=== PATIENT | male | born 1945 | race Caucasian/White ===

== ENCOUNTER → 2018-01-29 09:48 | Outpatient (CLI) | payer MEDICARE, BC | END | disposition home or self-care (01) | LOC: D.HCCARDIO 09:48 | DX: I20.9 Angina pectoris, unspecified (principal) ==

== ENCOUNTER 2018-02-18 11:58 | Outpatient (CLI) | payer MEDICARE, BC ==
[~2018-02-18] VITALS: Ht 193 cm; Wt 106.8 kg
--- NOTE | ~2018-02-18 | HEMODYNAMI ---
PATIENT:LEIGH NIELSEN MEDICAL RECORD: [id number] : 49 LOCATION:[facility] ADMISSION DATE: 02/18/18 Generatedon:02/18/201815:49 Patient name: LEIGH NIELSEN Patient #: [id number] SSN: : 1945 Date of study: 02/18/2018 Page: Of Hemodynamic Procedure Report Patient Data Patient Demographics Procedure consent was obtained First Name: LEIGH Gender: Male Last Name: MORALES : 1945 Patient #: [id number] Age: 72 year(s) Race: Unknown Additional ID: [id number] Contact details Address: [address] [place] [address] State: [place] City: [place] Zip code: [address] Past Medical History Allergies Allergen Reaction Date Comments Reported Penicillins 02/18/2018 Admission Admission Data Admission Date: 02/18/2018 Admission Time: 11:58 Height (in.): 75.98 Height (cm.): 193 Lab Results Lab Result Date: 02/18/2018 Lab Result Time: 0:00 Biochemistry Name Units Result Min Max BUN mg/dl 14 --(--*-)-- 7 18 Creatinine mg/dl 0.9 --(-*--)-- 0.6 1.3 CBC Name Units Result Min Max Hemoglobin g/dl 15.4 --(-*--)-- 13.5 17.5 Procedure Procedure Types Cath Procedure Diagnostic Procedure LHC LH w/Coronaries Sedation Charges Moderate Sedation up to 15 minutes PCI Procedure Coronary Stent Coronary Stent Initial Procedure Description Procedure Date Procedure Date: 02/18/2018 Procedure Start Time: 15:25 Procedure End Time: 15:44 Procedure Staff Name Function Bill Au MD Performing Physician Rhonda Gaspar RT Monitor Alton Ferris RT Scrub Coy Pisano RN Nurse Procedure Data Cath Procedure Fluoroscopy Diagnostic fluoroscopy Total fluoroscopy Time: 4.2 time: 4.2 min min Diagnostic fluoroscopy Total fluoroscopy dose: 455 dose: 455 mGy mGy Contrast Material Contrast Material Type Amount (ml) Isovue 300 121 Entry Location Entry Primary Successful Side Size Upsize Upsize Entry Closure Duran ccessful Closure Location (Fr) 1 (Fr) 2 (Fr) Remarks Device Remarks Radial Right 6 Fr Mechanical artery Short Compression Estimated blood loss: 10 ml Diagnostic catheters Device Type Used For End Catheter Placement DIAGNOSTIC [place] 110cm 5 Procedure Fr catheter ([id number]) Procedure Complications No complications Procedure Medications Medication Administration Route Dosage Oxygen etCO2 Nasal cannula 2 l/min Heparin Flush Bag added to field 2 bags (1000units/500ml NS) 0.9% NaCl I.V. 100 ml/hr Lidocaine 2% added to field 20 Radial Cocktail added to field 1 syringe (Verapomil 2mg/Nitro 400mcg/Heparin 1500units) Fentanyl I.V. 50 mcg Versed I.V. 1 mg Fentanyl I.V. 50 mcg Versed I.V. 1 mg Radial Cocktail I.A. 1 syringe (Verapomil 2mg/Nitro 400mcg/Heparin 1500units) Fentanyl I.V. 100 mcg Fentanyl I.V. 50 mcg Fentanyl I.V. 50 mcg Hemodynamics Rest HGB: 15.4 (g/dl) Heart Rate: 55 (bpm) Pressure Samples Time Site Value (mmHg) Purpose Heart Use Rate(bpm) 15:28 LV 107/1,10 Snapshot 61 Gradients Valve Time Site Site Mean SEP/DFP Peak To Heart Use 1 2 (mmHg) (sec/min) Peak Rate (mmHg) (bpm) Aortic 15:29 LV AO 61 Snapshots Pre Cath Intra NCS Post Cath Vital Signs Time Heart Resp SPO2 etCO2 NIBP (mmHg) Rhythm Pain Sedation Rate (ipm) (%) (mmHg) Status Level (bpm) 15:17:07 57 16 98 0 142/79(121) NSR 0 (11) 10(A) , No pain 15:21:27 54 16 93 20.2 139/73(112) NSR 0 (11) 10(A) , No pain 15:25:41 56 16 94 23.9 133/74(106) NSR 0 (11) 10(A) , No pain 15:29:47 62 16 94 11.9 110/89(97) NSR 0 (11) 9(A) , No pain 15:34:54 62 17 93 32.9 153/92(134) NSR 0 (11) 9(A) , No pain 15:39:12 66 17 95 0 140/82(119) NSR 0 (11) 9(A) , No pain 15:43:28 65 16 95 0 153/96(103) NSR 0 (11) 9(A) , No pain 15:46:23 67 16 93 0 136/78(130) NSR 0 (11) 9(A) , No pain Medications Time Medication Route Dose Verified Delivered Reason Notes Effectiveness by by 15:22:25 Oxygen etCO2 2 l/min Bill Coy Per Nasal Roe Pisano RN physician cannula 15:22:38 Heparin Flush added 2 bags Bill Coy used for Bag to Roe Pisano tank house supervisor (1000units/500ml field NS) 15:22:50 0.9% NaCl I.V. 100 Bill Coy Per ml/hr Roe Pisano RN physician 15:22:59 Lidocaine 2% added 20ml Bill Coy used for to vial Roe Pisano tank house supervisor field 15:23:07 Radial Cocktail added 1 Bill Coy used for (Verapomil to syringe Roe Pisano tank house supervisor 2mg/Nitro field 400mcg/Heparin 1500units) 15:25:32 Fentanyl I.V. 50 mcg Bill Coy for sedation Roe Pisano RN 15:25:39 Versed I.V. 1 mg Bill Cyo for sedation Roe Pisano RN 15:26:51 Fentanyl I.V. 50 mcg Bill Coy for sedation Roe Pisano RN 15:26:55 Versed I.V. 1 mg Bill Coy for sedation Roe Pisano RN 15:27:12 Radial Cocktail I.A. 1 Bill Bill for (Verapomil syringe Roe Au MD vasodilation 2mg/Nitro 400mcg/Heparin 1500units) 15:30:42 Fentanyl I.V. 100 mcg Bill Bill for sedation Roe Au MD 15:36:26 Fentanyl I.V. 50 mcg Bill Bill for sedation Roe Au MD 15:37:42 Fentanyl I.V. 50 mcg Bill Bill for sedation Roe Au MD Procedure Log Time Note 14:52:30 Alotn Ferris RT(R) sent for patient. Start room use. 15:02:31 Diagnostic Cath status Elective 15:02:32 Time tracking: Regular hours (M-F 7:00 - 5:00) 15:02:38 Plan of Care:Hemodynamics will remain stable., Cardiac rhythm will remain stable., Comfort level will be maintained., Respiratory function will remain adequate., Patient/ family verbilizes understanding of procedure., Procedure tolerated without complication., Recovers from procedure without complications.. 15:02:40 Signed procedure consent form obtained from patient. 15:02:53 Patient allergic to Penicillins 15:06:42 Patient received from Pre/Post Procedure Room to CCL 3 Alert and oriented. Tansferred to table in Supine position. 15:06:43 Warm blankets applied, and maureen hugger turned on for patient comfort. 15:06:44 Correct patient and procedure confirmed by team. 15:06:44 ECG and BP/O2 sat monitors applied to patient. 15:16:03 Vital chart was started 15:19:38 Baseline sample Acquired. 15:19:41 Rhythm: sinus bradycardia 15:19:42 Full Disclosure recording started 15:20:12 H&P Date Dictated: 02/17/2018 Within 30 days and on chart., H&P Addendum completed by physician on day of procedure. (MUST COMPLETE FOR ALL OUTPATIENTS). 15:20:12 Pre-procedure instructions explained to patient. 15:20:13 Pre-op teaching completed and patient verbalized understanding. 15:20:14 Family in patients room. 15:20:16 Patient NPO since Midnight. 15:20:19 Is patient on blood thinner?No 15:20:20 Patient diabetic? No. 15:20:22 Previous problem with sedation/anesthesia? No ? 15:20:23 Snore? Yes 15:20:24 Sleep apnea? No 15:20:25 Deviated septum? No 15:20:26 Opens mouth fully? Yes 15:20:26 Sticks out tongue? Yes 15:20:28 Airway obstruction? No ? 15:20:30 Dentures? No ? 15:20:32 Modified Ced's test Ulnar < 7 seconds 15:20:34 Patient pain scale 0/10 ?. 15:20:39 IV patent on arrival in left hand with 0.9% NaCl at [facility]. 15:21:02 Lab Result : Creatinine 0.9 mg/dl 15:21: Lab Result : BUN 14 mg/dl 15:21: Lab Result : Hemoglobin 15.4 g/dl 15:21:04 Lab results completed and on chart. 15:21:06 Right Radial & Right Groin area was prepped with chlora-prep and draped in sterile fashion 15:21: Alarms reviewed by R. N. 15:: Sharps counted by scrub and verified by R.N. 15:: --------ALL STOP TIME OUT------ 15:: Final Timeout: patient, procedure, and site verified with staff and physician. All members of the team are in agreement. 15:21:11 Right Radial & Right Groin site verified by team. 15:21:13 Physical assessment completed. ASA score P 2 - A patient with mild systemic disease as per Bill Au MD. 15:21:19 Sedation plan: IV Moderate Sedation Medication:Versed, Fentanyl 15:21:28 Use device set Radial Dx or PCI 15:21:29 ACIST Syringe (74524) opened to sterile field. 15:21:30 Bag Decanter (2002S) opened to sterile field. 15:21:31 ACIST Hand Control (02646) opened to sterile field. 15:21:31 ACIST Manifold (12240) opened to sterile field. 15:21:32 Tegaderm 4 x 4 (1626W) opened to sterile field. 15:21:33 Medline Cath Pack ([id number]) opened to sterile field. 15:21:33 DIAGNOSTIC WIRE .035 260cm J wire (709170) opened to sterile field. 15:21:34 MBrace Wrist Support ([id number]) opened to sterile field. 15:21:35 NEEDLE Cook 21G 4cm Radial (X54720) opened to sterile field. 15:21:36 SHEATH 6FR Slender (06-0485) opened to sterile field. 15:22:25 Oxygen 2 l/min etCO2 Nasal cannula was administered by Coy Pisano RN; Per physician; 15:22:38 Heparin Flush Bag (1000units/500ml NS) 2 bags added to field was administered by Coy Pisano RN; used for procedure; 15:22:50 0.9% NaCl 100 ml/hr I.V. was administered by Coy Pisano RN; Per physician; 15::59 Lidocaine 2% 20ml vial added to field was administered by Coy Pisano RN; used for procedure; 15:23:07 Radial Cocktail (Verapomil 2mg/Nitro 400mcg/Heparin 1500units) 1 syringe added to field was administered by Coy Pisano RN; used for procedure; 15:24:18 Procedure started. 15:25:21 Local anesthetic to right radial artery with Lidocaine 2% by Bill Au MD.INITIAL ACCESS ONLY 15::32 Fentanyl 50 mcg I.V. was administered by Coy Pisano RN; for sedation; 15::39 Versed 1 mg I.V. was administered by Coy Pisano RN; for sedation; 15::51 A 6 Fr Short sheath was inserted into the Right Radial artery 15::07 Zero performed for pressure channel P1 15:26:13 Zero performed for pressure channel P1 15::17 Zero performed for pressure channel P1 15::51 Fentanyl 50 mcg I.V. was administered by Coy Pisano RN; for sedation; 15::55 Versed 1 mg I.V. was administered by Coy Pisano RN; for sedation; 15::59 A DIAGNOSTIC [place] 110cm 5 Fr catheter (070263) was advanced over the wire and used for Procedure. 15:27:12 Radial Cocktail (Verapomil 2mg/Nitro 400mcg/Heparin 1500units) 1 syringe I.A. was administered by Bill Au MD; for vasodilation; 15::28 LV gram done using PADILLA 15::31 Injector settings: Ml/sec: 7, Volume: 15, 15:28:48 LV hemodynamics recorded. 15:29:01 EF : 60 % 15:30:42 Fentanyl 100 mcg I.V. was administered by Bill Au MD; for sedation; 15:31:15 LCA angiography performed. 15:32:16 RCA angiography performed. 15:32:19 Catheter removed. 15:33:15 GUIDE 6FR XBLAD 3.5 catheter ([id number]) opened to sterile field. 15:33:15 BMW 300cm Straight [place] 2 wire (1272025) opened to sterile field. 15:33:15 INFLATOR Merit BasixCompak (FR8138) opened to sterile field. 15:33:16 TUBING High Pressure Extension Tubing (Roe) ([id number]) opened to sterile field. 15:34:28 6 Fr XBLAD 3.5 guide catheter was inserted over the wire 15:36:26 Fentanyl 50 mcg I.V. was administered by Bill Au MD; for sedation; 15:36:41 BMW 300 wire advanced. 15:36:57 Wire advanced across lesion. 15:37:42 Fentanyl 50 mcg I.V. was administered by Bill Au MD; for sedation; 15:38:23 Patient Height : 75.98 inches 15:39:12 Place stent Inflation Number: 1 A INTEGRITY OTW 3.5 X 12 stent ([id number]) was prepped and advanced across the Prox CX. The stent was deployed at 16 CARLOS EDUARDO for 0:00 (min:sec). 15:40:04 Stent catheter was removed intact over wire. 15:40:05 Wire removed. 15:40:06 Guide catheter removed. 15:40:26 Procedure ended.(Physican Out) 15:40:43 Sheath removed intact; hemostasis achieved with Mechanical Compression to the Right Radial artery. 15:40:49 Fluoroscopy time 04.20 minutes. 15:40:56 Fluoroscopy dose: 455 mGy 15:40:56 Flurop Dose total: 455 15:40:59 Contrast amount:Isovue 300 121ml. 15:41:48 TR band inflated with 10cc of air. 15:41:58 Post-procedure physical assessment completed. ASA score P 2 - A patient with mild systemic disease as per Bill Au MD. 15:42:01 Post procedure rhythm: unchanged. 15:42:03 Estimated blood loss: 10 ml 15:43:24 Post procedure instruction explained to patient.Patient verbalizes understanding. 15:43:25 Patient needs reinforcement of post procedure teaching. 15:43:49 Procedure type changed to Cath procedure, Diagnostic procedure, LHC, LHC w/Coronaries, Sedation Charges, Moderate Sedation up to 15 minutes, PCI procedure, Coronary Stent, Coronary Stent Initial 15:44:29 Procedure and supply charges have been captured, reviewed, submitted and are correct. 15:44:32 Procedure Complication : No complications :44:34 Vital chart was stopped :44:34 See physician's report for complete and final results. 15:44:36 Report given to Pre/Post Procedure Room. 15:44:38 Patient transfered to Pre/Post Procedure Room with Bed. 15:44:40 Procedure ended. 15:44:40 Full Disclosure recording stopped 15:44:43 End room use (Document Last) 15:45:13 Vital chart was started 15:49:50 Vital chart was stopped Intervention Summary Intervention Notes Time ActionType Lesion and Equipment Action# Pressure Duration Attributes Used 15:39:12 Place stent Prox CX INTEGRITY 1 16 00:00 OTW 3.5 X 12 stent ([id number]) Device Usage Item Name Manufacture Quantity Catalog Hospital Part Current Minimal Lot# / Number Charge Number Stock Stock Serial# Code ACIST Acist 1 58692 755987 207633 624444 20 Syringe Medical (27816) Systems Inc Bag Microtek 1 2001S 908433 22612 295806 5 Decanter Medical Inc. () ACIST Hand Acist 1 84416 297943 631791 322512 5 Control Medical (69716) Systems Inc ACIST Acist 1 95782 226097 945413 341040 5 Manifold Medical (56340) Systems Inc Tegaderm 4 3M 1 1626W 480631 930197 630684 5 x 4 (1626W) Medline Medline 1 [id number] 759504 08387 017285 5 Cath Pack ([id number]) DIAGNOSTIC St Fredo 1 852676 367088 128639 842584 30 WIRE .035 260cm J wire (746324) MBrace Advanced 1 140-0250-00 677218 09263 239885 5 Wrist Vascular Support Dynamics ([id number]) NEEDLE Cook Cook Medical 1 J31734 065104 969308 909955 5 21G 4cm Radial (S24201) SHEATH 6FR Terumo 1 [id number] 199304 661207 353924 5 Slender (80-1060) DIAGNOSTIC Terumo 1 40-8807 922225 496473 180556 5 [place] 110cm 5 Fr catheter (750730) GUIDE 6FR Cardinal 1 [id number] 388044 491975 866453 10 XBLAD 3.5 Health catheter (35852001) BMW 300cm [place] 1 2704912 592519 467712 445438 5 Straight Vascular [place] 2 wire (5201124) INFLATOR Merit 1 OK1977 784967 465056 248028 15 Merit Medical BasixCompak (QH5462) TUBING High Merit 1 [id number] 199951 72307 145926 10 Pressure Medical Extension Tubing (Au) ([id number]) INTEGRITY Medtronic 1 [id number] 479111 586391 7 [id number] OTW 3.5 X 12 stent ([id number]) Signature Audit [place] Stage Time Signature Unsigned Intra-Procedure 02/18/2018 Rhonda Gaspar 3:49:47 PM RT(R) Signatures Monitor : Rhonda Gaspar Signature : RT Date : Time : [address] [place] [address]
[2018-02-18] MEDS ORDERED: BETAPACE 80 MG80 MG PO (12:19)
[2018-02-18] MEDS ORDERED: ZOCOR40 MG PO (12:20)
[2018-02-18] MEDS ORDERED: ALTACE10 MG PO (12:20)
[2018-02-18] MEDS ORDERED: GLUCOPHAGE1000 MG PO (12:20)
[2018-02-18 12:30] VITALS: BP 165/105; Ht 193 cm; Wt 106.8 kg
[2018-02-18 12:43] LABS: BASOPHILS 0.2 % (0-2); EOSINOPHILS 3.6 % (0-7); HEMATOCRIT 44.3 % (42.0-54.0); HEMOGLOBIN 15.4 g/dL (13.5-17.5); IMMATURE GRANULOCYTES 0.5 % (0-5); LYMPHOCYTES 27.3 % (15-50); MCH 32.7 pg (26.0-34.0); MCHC 34.8 g/dL (31.0-37.0); MCV 94.1 fL (80.0-100.0); MEAN PLATELET VOLUME 11.1 fL (7.4-10.4); MONOCYTES 9.1 % (2-11); NEUTROPHILS 59.3 % (40-80); PLATELET COUNT 212 10x3/uL (130-400); RBC 4.71 10x6/uL (4.20-6.10); RDW 12.1 % (11.5-14.5); WBC 9.7 10x3/uL (4.8-10.8)
[2018-02-18 12:45] LABS: CALC OSMOLALITY 288 mosm/kg (275-300); CALCIUM 9.1 mg/dL (8.5-10.1); CHLORIDE - SERUM 107 mmol/L (98-107); CREATININE - SERUM 0.9 mg/dL (0.6-1.3); GLUCOSE 182 mg/dL (74-106); POTASSIUM - SERUM 4.1 mmol/L (3.5-5.1); SODIUM 142 mmol/L (136-145); UREA NITROGEN 14 mg/dL (7-18); eGFR NON AFRICAN AMERICAN 89 mL/min (90-120)
[2018-02-18] MEDS ORDERED: PLAVIX75 MG PO (16:04)
[2018-02-18] MEDS ORDERED: BAYER CHEWABLE81 MG PO (16:04)
== END 2018-02-18 19:45 ==
LOC: D.CATH 11:58
PROVIDERS: Internal Medicine Cardiovascular Disease
DX: I25.119 Atherosclerotic heart disease of native coronary artery with unspecified angina pectoris (principal); R94.30 Abnormal result of cardiovascular function study, unspecified; E11.9 Type 2 diabetes mellitus without complications; E78.5 Hyperlipidemia, unspecified; I10 Essential (primary) hypertension; I48.0 Paroxysmal atrial fibrillation

== ENCOUNTER 2018-03-03 11:01 | Outpatient (CLI) | payer MEDICARE, BC ==
[~2018-03-03] VITALS: Ht 193 cm; Wt 106.8 kg
--- NOTE | ~2018-03-03 | HEMODYNAMI ---
PATIENT:LEIGH NIELSEN MEDICAL RECORD: [id number] : 49 LOCATION:[facility] ADMISSION DATE: 03/03/18 Generatedon:03/03/201814:02 Patient name: LEIGH NIELSEN Patient #: [id number] SSN: : 1945 Date of study: 03/03/2018 Page: Of Hemodynamic Procedure Report Patient Data Patient Demographics Procedure consent was obtained First Name: LEIGH Gender: Male Last Name: MORALES : 1945 Patient #: [id number] Age: 72 year(s) Race: Additional ID: [id number] Contact details Address: [address] [place] [address] State: [place] City: [place] Zip code: [address] Past Medical History Allergies Allergen Reaction Date Comments Reported Penicillins 02/18/2018 Penicillins 03/03/2018 Admission Admission Data Admission Date: 03/03/2018 Admission Time: 11:01 Procedure Procedure Types Cath Procedure Diagnostic Procedure PCI Procedure Coronary Stent Coronary Stent Initial Procedure Description Procedure Date Procedure Date: 03/03/2018 Procedure Start Time: 13:47 Procedure End Time: 14:02 Procedure Staff Name Function Bill Au MD Performing Physician Johnny Barakat RT Scrub Babs Lechuga RT Monitor Aliza Ramos RN Nurse Procedure Data Cath Procedure Fluoroscopy Diagnostic fluoroscopy Total fluoroscopy Time: 3.3 time: 3.3 min min Diagnostic fluoroscopy Total fluoroscopy dose: 178 dose: 178 mGy mGy Contrast Material Contrast Material Type Amount (ml) Isovue 300 58 Entry Location Entry Primary Successful Side Size Upsize Upsize Entry Closure Duran ccessful Closure Location (Fr) 1 (Fr) 2 (Fr) Remarks Device Remarks Radial Right 6 Fr Mechanical artery Short Compression Estimated blood loss: 5 ml Procedure Complications No complications Procedure Medications Medication Administration Route Dosage 0.9% NaCl I.V. 100 ml/hr Oxygen etCO2 Nasal cannula 2 l/min Lidocaine 2% added to field 20 Heparin Flush Bag added to field 2 bags (1000units/500ml NS) Radial Cocktail added to field 1 syringe (Verapomil 2mg/Nitro 400mcg/Heparin 1500units) Versed I.V. 2 mg Fentanyl I.V. 50 mcg Versed I.V. 2 mg Fentanyl I.V. 50 mcg Heparin Bolus I.V. 90531 units Hemodynamics Rest Heart Rate: 61 (bpm) Snapshots Pre Cath Intra NCS Post Cath Vital Signs Time Heart Resp SPO2 etCO2 NIBP (mmHg) Rhythm Pain Sedation Rate (ipm) (%) (mmHg) Status Level (bpm) 13:31:22 61 17 97 22.6 128/75(100) NSR 0 (11) 10(A) , No pain 13:35:44 61 18 98 33.2 120/72(99) NSR 0 (11) 10(A) , No pain 13:40:02 61 13 96 15.1 121/72(95) NSR 0 (11) 10(A) , No pain 13:44:20 61 10 98 12.8 114/72(90) NSR 0 (11) 10(A) , No pain 13:48:38 61 14 96 25.6 112/72(95) NSR 0 (11) 10(A) , No pain 13:53:01 64 14 97 21.9 102/63(78) NSR 0 (11) 9(A) , No pain 13:57:16 65 13 97 23.6 110/64(87) NSR 0 (11) 10(A) , No pain 14:01:32 64 7 95 11.3 106/69(90) NSR 0 (11) 10(A) , No pain Medications Time Medication Route Dose Verified Delivered Reason Not es Effectiveness by by 13:30:17 0.9% NaCl I.V. 100 Bill Aliza used for ml/hr Roe Ramos internal wholesaler 13:30:25 Oxygen etCO2 2 l/min Bill Aliza used for Nasal Roe Ramos procedure cannula RN 13:30:30 Lidocaine 2% added 20ml Bill Bill for local to vial Roe Au MD anesthetic field 13:30:35 Heparin Flush added 2 bags Bill Bill used for Bag to Roe Au MD procedure (1000units/500ml field NS) 13:30:42 Radial Cocktail added 1 Bill Bill used for (Verapomil to syringe Roe Au MD procedure 2mg/Nitro field 400mcg/Heparin 1500units) 13:45:38 Versed I.V. 2 mg Bill Aliza for sedation Roe Ramos RN 13:45:43 Fentanyl I.V. 50 mcg Bill Aliza for sedation Roe Ramos RN 13:51:12 Versed I.V. 2 mg Bill Aliza for sedation Roe Ramos RN 13:51:18 Fentanyl I.V. 50 mcg Bill Aliza for sedation Roe Ramos RN 13:52:59 Hep[place].V. 45959 Bill Aliza for shiraz ified units Roe Ramos anticoagulation with Dr. NEGRO Au Procedure Log Time Note 13:15:03 Informed consent obtained and on chart 13:15:08 Diagnostic Cath Status : Elective 13:16:19 Johnny Barakat RT(R) (CV) sent for patient. Start room use. 13:16:29 Time tracking: Regular hours (M-F 7:00 - 5:00) 13:16:33 Plan of Care:Hemodynamics will remain stable., Cardiac rhythm will remain stable., Comfort level will be maintained., Respiratory function will remain adequate., Patient/ family verbilizes understanding of procedure., Procedure tolerated without complication., Recovers from procedure without complications.. 13:17:06 Use device set Radial Dx or PCI 13:18:36 Procedure type changed to Cath procedure, Diagnostic procedure, PCI procedure, Coronary Stent, Coronary Stent Initial 13:23:00 Patient received from Pre/Post Procedure Room to [facility] 1 Alert and oriented. Tansferred to table in Supine position. 13:23:01 Warm blankets applied, and maureen hugger turned on for patient comfort. 13:23:02 Correct patient and procedure confirmed by team. 13:23:02 ECG and BP/O2 sat monitors applied to patient. 13:23:03 Full Disclosure recording started 13:30:06 Vital chart was started 13:30:17 0.9% NaCl 100 ml/hr I.V. was administered by Aliza Ramos RN; used for procedure; 13:30:25 Oxygen 2 l/min etCO2 Nasal cannula was administered by Aliza Ramos RN; used for procedure; 13:30:30 Lidocaine 2% 20ml vial added to field was administered by Bill Au MD; for local anesthetic; 13:30:35 Heparin Flush Bag (1000units/500ml NS) 2 bags added to field was administered by Bill Au MD; used for procedure; 13:30:42 Radial Cocktail (Verapomil 2mg/Nitro 400mcg/Heparin 1500units) 1 syringe added to field was administered by Bill Au MD; used for procedure; 13:37:50 Rhythm: sinus rhythm 13:38:26 H&P Date Dictated: 02/18/2019 Within 30 days and on chart., H&P Addendum completed by physician on day of procedure. (MUST COMPLETE FOR ALL OUTPATIENTS). 13:38:27 Pre-procedure instructions explained to patient. 13:38:27 Pre-op teaching completed and patient verbalized understanding. 13:38:30 Family in patients room. 13:38:31 Patient NPO since Midnight. 13:38:38 Patient allergic to Penicillins 13:38:43 Is the patient allergic to Iodine/contrast media? No. 13:38:44 Is patient on blood thinner?Yes 13:38:46 ACC The patient was administered the following blood thiners within the last 24 hours: ACCPlavix 13:38:49 Patient diabetic? No. 13:38:53 Previous problem with sedation/anesthesia? No ? 13:41:36 Snore? Yes 13:41:44 Sleep apnea? No 13:41:45 Deviated septum? No 13:41:47 Opens mouth fully? Yes 13:41:50 Sticks out tongue? Yes 13:41:53 Airway obstruction? No ? 13:41:55 Dentures? No ? 13:42:01 Pre procedure: right dorsailis pedis pulse 2+ Normal; easily identifiable; not easily obliterated 13:42:03 Modified Ced's test Ulnar < 7 seconds 13:42:05 Patient pain scale 0/10 ?. 13:42:17 IV patent on arrival in left forearm with 0.9% NaCl at [facility]. 13:42:20 Lab results completed and on chart. 13:42:30 Right Radial & Right Groin area was prepped with chlora-prep and draped in sterile fashion 13:42:30 Alarms reviewed by R. N. 13:42:31 Sharps counted by scrub and verified by R.N. 13:42:40 Use device set AU PCI 13:42:46 NEEDLE Cook 21G 4cm Radial ([id number]) opened to sterile field. 13:42:48 TUBING High Pressure Extension Tubing (Au) ([id number]) opened to sterile field. 13:42:50 INFLATOR Merit BasixCompak (MT0969) opened to sterile field. 13:42:51 SHEATH 6FR Slender (80-1060) opened to sterile field. 13:42:57 BMW 300cm Kila 2 J wire ([id number]) opened to sterile field. 13:43:00 ACIST Syringe (33493) opened to sterile field. 13:43:01 Medline Cath Pack ([id number]) opened to sterile field. 13:43:02 Bag Decanter (2002S) opened to sterile field. 13:43:03 DIAGNOSTIC WIRE .035 260cm J wire (483531) opened to sterile field. 13:43:04 ACIST Hand Control (67884) opened to sterile field. 13:43:04 ACIST Manifold (14910) opened to sterile field. 13:43:16 Zero performed for pressure channel P1 13:43:21 Zero performed for pressure channel P1 13:43:24 Zero performed for pressure channel P1 13:43:35 MBrace Wrist Support ([id number]) opened to sterile field. 13:45:17 Final Timeout: patient, procedure, and site verified with staff and physician. All members of the team are in agreement. 13:45:21 Right Radial site verified by team. 13:45:23 Physical assessment completed. ASA score P 2 - A patient with mild systemic disease as per Bill Au MD. 13:45:26 Sedation plan: IV Moderate Sedation Medication:Versed, Fentanyl 13:45:32 Baseline sample Acquired. 13:45:38 Versed 2 mg I.V. was administered by Aliza Ramos RN; for sedation; 13:45:43 Fentanyl 50 mcg I.V. was administered by Aliza Ramos RN; for sedation; 13:47:04 Procedure started. 13:47:09 Local anesthetic to right radial artery with Lidocaine 2% by Bill Au MD.INITIAL ACCESS ONLY 13:47:50 A 6 Fr Short sheath was inserted into the Right Radial artery 13:49:28 6 Fr XBLAD 3.5 guide catheter was inserted over the wire 13:51:12 Versed 2 mg I.V. was administered by Aliza Ramos RN; for sedation; 13:51:18 Fentanyl 50 mcg I.V. was administered by Aliza Ramos RN; for sedation; 13:51:30 BMW wire advanced. 13:52:59 Heparin Bolus 59783 units I.V. was administered by Aliza Ramos RN; for anticoagulation; verified with Dr. Au 13:56:19 Place stent Inflation Number: 1 A INTEGRITY OTW 3.0 X 15 stent ([id number]) was prepped and advanced across the Mid LAD. The stent was deployed at 14 CARL[address] ED[address]ARDO for 0:09 (min:sec). 13:57:56 Stent catheter was removed intact over wire. 13:58:33 Wire removed. 13:58:35 Guide catheter removed. 13:58:46 Sheath removed intact; hemostasis achieved with Mechanical Compression to the Right Radial artery. 13:58:48 Procedure ended.(Physican Out) 13:59:05 Fluoroscopy time 03.30 minutes. 13:59:20 Flurop Dose total: 178 13:59:20 Fluoroscopy dose: 178 mGy 13:59:24 Contrast amount:Isovue 300 58ml. 13:59:27 TR band inflated with 12cc of air. 13:59:31 Insertion/operative site no bleeding no hematoma. 13:59:37 Post right radial artery:stable, clean and dry 13:59:40 Post Procedure Pulses reassessed and unchanged 13:59:52 Post-procedure physical assessment completed. ASA score P 2 - A patient with mild systemic disease as per Bill Au MD. 13:59:55 Post procedure rhythm: unchanged. 13:59:59 Estimated blood loss: 5 ml 14:00:00 Post procedure instruction explained to patient.Patient verbalizes understanding. 14:00:01 Patient needs reinforcement of post procedure teaching. 14:00:06 Procedure Complication : No complications 14:00:08 See physician's report for complete and final results. 14:00:21 TR BAND Standard ([id number]) opened to sterile field. 14:01:17 Procedure and supply charges have been captured, reviewed, submitted and are correct. 14:02:02 Vital chart was stopped 14:02:04 Report given to Pre/Post Procedure Room. 14:02:06 Patient transfered to Pre/Post Procedure Room with Stretcher. 14:02:24 Procedure ended. 14:02:24 Full Disclosure recording stopped 14:02:28 End room use (Document Last) Intervention Summary Intervention Notes Time ActionType Lesion and Equipment Action# Pressure Duration Attributes Used 13:56:19 Place stent Mid LAD INTEGRITY 1 14 00:09 OTW 3.0 X 15 stent ([id number]) Device Usage Item Name Manufacture Quantity Catalog Hospital Part Current Minimal Lot# / Number Charge Number Stock Stock Serial# Code NEEDLE [facility] [facility] [employer] 1 [id number] [id number] 518257 5 21G 4cm Radial (N17808) TUBING High Merit 1 [id number] 989459 45899 626736 10 Pressure Medical Extension Tubing (Au) (MY1236N) INFLATOR Merit 1 HJ9924 320217 859176 829899 15 Voter Gravity Medical BasixCompak (NY0879) SHEATH 6FR Terumo 1 [id number] 143378 404972 084396 5 Slender (80-1060) BMW 300cm [place] 1 [id number] 437732 455093 800238 5 Kila 2 Vascular J wire ([id number]) ACIST Acist 1 39557 982104 528822 110123 20 Syringe Medical (81947) Systems Inc Medline Medline 1 [id number] 876279 93933 315999 5 Cath Pack ([id number]) Bag Microtek 1 2001S 701694 97055 635272 5 Decanter Medical Inc. (2001S) DIAGNOSTIC St Fredo 1 590186 653328 154925 602934 30 WIRE .035 260cm J wire (538546) ACIST Hand Acist 1 62355 110858 571877 095121 5 Control Medical (62251) Systems Inc ACIST Acist 1 53792 909971 671605 454655 5 Manifold Medical (84707) Systems Inc MBrace Advanced 1 140-0250-00 821784 19760 289269 5 Wrist Vascular Support Dynamics ([id number]) INTEGRITY Medtronic 1 [id number] 032200 033954 5 [id number] OTW 3.0 X 15 stent ([id number]) TR BAND Terumo 1 [id number] 187159 217474 349249 40 Standard ([id number]) Signature Audit [place] Stage Time Signature Unsigned Intra-Procedure 03/03/2018 Babs 2:02:42 PM Counts RT(R) Signatures Monitor : Babs Signature : Counts RT Date : Time : [address] [place] [address]
[~2018-03-03 11:01] MED LIST: ALTACE10 MG PO; BAYER CHEWABLE81 MG PO; BETAPACE 80 MG80 MG PO; GLUCOPHAGE1000 MG PO; PLAVIX75 MG PO; ZOCOR40 MG PO
[2018-03-03] MEDS ORDERED: ALTACE10 MG PO (11:24)
[2018-03-03] MEDS ORDERED: POLY-VI-SOL W/I50 ML PO (11:25)
[2018-03-03] MEDS ORDERED: NIASPAN500 MG PO (11:26)
[2018-03-03] MEDS ORDERED: VITAMIN C WIT1000 MG (11:27)
[2018-03-03] MEDS ORDERED: VITAMIN D2000 UNIT PO (11:27)
[2018-03-03] MEDS ORDERED: SAW PALMETTO450 MG PO (11:28)
[2018-03-03] MEDS ORDERED: CO Q-10100 MG PO (11:28)
[2018-03-03] MEDS ORDERED: OSTEO BI-FLEX1 EAC1 PO (11:28)
[2018-03-03] MEDS ORDERED: BETAPACE 120 M120 MG PO (11:30)
[2018-03-03 11:37] VITALS: BP 145/77; Ht 193 cm; Wt 106.8 kg
[2018-03-03 11:44] LABS: BASOPHILS 0.5 % (0-2); EOSINOPHILS 3.2 % (0-7); HEMATOCRIT 44.4 % (42.0-54.0); HEMOGLOBIN 15.8 g/dL (13.5-17.5); IMMATURE GRANULOCYTES 0.6 % (0-5); LYMPHOCYTES 31.7 % (15-50); MCH 33.2 pg (26.0-34.0); MCHC 35.6 g/dL (31.0-37.0); MCV 93.3 fL (80.0-100.0); MEAN PLATELET VOLUME 10.5 fL (7.4-10.4); MONOCYTES 8.4 % (2-11); NEUTROPHILS 55.6 % (40-80); PLATELET COUNT 206 10x3/uL (130-400); RBC 4.76 10x6/uL (4.20-6.10); WBC 11.1 10x3/uL (4.8-10.8)
[2018-03-03 11:59] LABS: CALC OSMOLALITY 279 mosm/kg (275-300); CALCIUM 9.2 mg/dL (8.5-10.1); CARBON DIOXIDE 24.8 mmol/L (21.0-32.0); CHLORIDE - SERUM 103 mmol/L (98-107); CREATININE - SERUM 0.9 mg/dL (0.6-1.3); GLUCOSE 208 mg/dL (74-106); POTASSIUM - SERUM 4.2 mmol/L (3.5-5.1); SODIUM 136 mmol/L (136-145); UREA NITROGEN 17 mg/dL (7-18); eGFR NON AFRICAN AMERICAN 89 mL/min (90-120)
--- NOTE | 2018-03-03 14:25 | NUR ---
ROOM AIR, NO RESP DISTRESS. RIGHT WRIST TR BAND CDI, NO BLEEDING OR HEMATOMA NOTED. NO C/O PAIN OR NAUSEA. VSS. FAMILY AT BEDSIDE, CALL LIGHT WITHIN REACH.
--- NOTE | 2018-03-03 14:55 | NUR ---
RIGHT WRIST TR BAND CDI, NO BLEEDING OR HEMATOMA NOTED. ROOM AIR WITH NO RESP DISTRESS. VSS. WILL CONTINUE TO MONITOR.
--- NOTE | 2018-03-03 15:10 | NUR ---
SIPPING ON DRINK AND EATING SANDWICH WITH NO C/O NAUSEA. RIGHT WRIST TR BAND CDI, NO BLEEDING NOTED. VSS. WILL CONTINUE TO MONITOR.
--- NOTE | 2018-03-03 15:40 | NUR ---
RESTING QUIETLY WITH NO C/O. RIGHT WRIST TR BAND CDI, NO BLEEDING NOTED. DENIES ANY NEEDS AT THIS TIME. VSS. CALL LIGHT WITHIN REACH.
--- NOTE | 2018-03-03 17:00 | NUR ---
3CC OF AIR REMOVED FROM TR BAND WITH NO BLEEDING NOTED. VSS. WILL CONTINUE TO MONITOR.
--- NOTE | 2018-03-03 17:20 | NUR ---
3CC OF AIR REMOVED FROM TR BAND WITH NO BLEEDING NOTED.
--- NOTE | 2018-03-03 17:38 | NUR ---
2CC OF AIR REMOVED FROM TR BAND WITH NO BLEEDING NOTED.
--- NOTE | 2018-03-03 17:50 | NUR ---
LEFT PIV D/C'D WITH CATHETER INTACT, BAND AID TO SITE. UP TO BEDSIDE TO GET DRESSED. AMBULATED TO RESTROOM.
--- NOTE | 2018-03-03 17:55 | NUR ---
HEMATOMA NOTED TO RIGHT WRIST. PRESSURE HELD TO SITE AND 6CC OF AIR PLACED BACK INTO TR BAND.
--- NOTE | 2018-03-03 18:25 | NUR ---
3CC OF AIR REMOVED FROM TR BAND WITH NO BLEEDING NOTED.
--- NOTE | 2018-03-03 18:45 | NUR ---
REMAINING AIR REMOVED FROM TR BAND WITH NO BLEEDING NOTED. DRESSING PLACED TO SITE. DISCHARGE INSTRUCTIONS GIVEN, VERBALIZED UNDERSTANDING.
--- NOTE | 2018-03-03 18:55 | NUR ---
TAKEN OUT VIA WHEELCHAIR BY CATH INSTRUMENT ASSEMBLY SUPERVISOR. LEFT FACILITY WITH FAMILY AND ALL PERSONAL BELONGINGS.
== END 2018-03-03 18:55 | disposition home or self-care (01) ==
LOC: D.CATH 11:01
PROVIDERS: Internal Medicine Cardiovascular Disease
DX: I25.119 Atherosclerotic heart disease of native coronary artery with unspecified angina pectoris (principal)

== ENCOUNTER → 2018-08-14 10:09 | Outpatient (CLI) | payer MEDICARE, BC ==
[2018-03-03 11:37] VITALS: BMI 28.6
[~2018-08-14 10:09] MED LIST changes: +BETAPACE 120 M120 MG PO; +CO Q-10100 MG PO; +NIASPAN500 MG PO; +OSTEO BI-FLEX1 EAC1 PO; +POLY-VI-SOL W/I50 ML PO; +SAW PALMETTO450 MG PO; +VITAMIN C WIT1000 MG; +VITAMIN D2000 UNIT PO
== END | disposition home or self-care (01) ==
LOC: D.HCCARDIO 08-10 10:30
PROVIDERS: ATTEND Internal Medicine Cardiovascular Disease
DX: I25.10 Atherosclerotic heart disease of native coronary artery without angina pectoris (principal)

== ENCOUNTER → 2018-10-12 11:39 | Outpatient (CLI) | payer MEDICARE, BC ==
[2018-03-03 11:37] VITALS: BMI 28.6
== END | disposition home or self-care (01) ==
LOC: D.HCCARDIO 11:39
PROVIDERS: ATTEND Internal Medicine Cardiovascular Disease
DX: I25.10 Atherosclerotic heart disease of native coronary artery without angina pectoris (principal)

== ENCOUNTER 2018-10-19 11:18 | Outpatient (CLI) | payer MEDICARE, BC ==
[~2018-10-19] VITALS: Ht 193 cm; Wt 103.6 kg
--- NOTE | ~2018-10-19 | HEMODYNAMI ---
PATIENT:LEIGH NIELSEN MEDICAL RECORD: [id number] : 49 LOCATION:[facility] ADMISSION DATE: 10/19/18 Generatedon:10/19/201814:24 Patient name: LEIGH NIELSEN Patient #: [id number] SSN: : 1945 Date of study: 10/19/2018 Page: Of Hemodynamic Procedure Report Patient Data Patient Demographics Procedure consent was obtained First Name: LEIGH Gender: Male Last Name: MORALES : 1945 Patient #: [id number] Age: 72 year(s) Race: Additional ID: [id number] Contact details Address: [address] [place] [address] State: [place] City: [place] Zip code: [address] Past Medical History Allergies Allergen Reaction Date Comments Reported Penicillins 02/18/2018 Penicillins 03/03/2018 Other allergy 10/19/2018 N Admission Admission Data Admission Date: 10/19/2018 Admission Time: 11:18 Lab Results Lab Result Date: 10/19/2018 Lab Result Time: 0:00 Biochemistry Name Units Result Min Max BUN mg/dl 15 --(--*-)-- 7 18 Creatinine mg/dl 1 --(--*-)-- 0.6 1.3 eGFR ml/min 78 *-(----)-- 90 120 NONAFRICAN CBC Name Units Result Min Max Hemoglobin g/dl 14.7 --(-*--)-- 13.5 17.5 Procedure Procedure Types Cath Procedure Diagnostic Procedure C LH w/Coronaries Sedation Charges Moderate Sedation up to 15 minutes Procedure Description Procedure Date Procedure Date: 10/19/2018 Procedure Start Time: 14:02 Procedure Staff Name Function Bill Au MD Performing Physician Cesar Carvajal RN Nurse Johnny Barakat RT Scrub Seferino Lee RT Monitor Procedure Data Cath Procedure Fluoroscopy Diagnostic fluoroscopy Total fluoroscopy Time: 3.9 time: 3.9 min min Diagnostic fluoroscopy Total fluoroscopy dose: dose: 1029 mGy 1029 mGy Contrast Material Contrast Material Type Amount (ml) Isovue 300 93 Entry Location Entry Primary Successful Side Size Upsize Upsize Entry Closure Duran ccessful Closure Location (Fr) 1 (Fr) 2 (Fr) Remarks Device Remarks Radial Right 6 Fr Mechanical artery Short Compression Estimated blood loss: 5 ml Diagnostic catheters Device Type Used For End Catheter Placement DIAGNOSTIC [place] 110cm 5 Procedure Fr catheter ([id number]) DIAGNOSTIC AR MOD 5Fr Procedure Catheter ([id number]) DIAGNOSTIC AL1 5Fr Procedure catheter ([id number]) Procedure Medications Medication Administration Route Dosage 0.9% NaCl I.V. 100 ml/hr Oxygen etCO2 Nasal cannula 2 l/min Heparin Flush Bag added to field 2 bags (1000units/500ml NS) Lidocaine 2% added to field 20 Radial Cocktail added to field 1 syringe (Verapamil 2mg/Nitro 400mcg/Heparin 1500units) Versed I.V. 2 mg Fentanyl I.V. 100 mcg Radial Cocktail I.A. 1 syringe (Verapamil 2mg/Nitro 400mcg/Heparin 1500units) Versed I.V. 1 mg Hemodynamics Rest HGB: 14.7 (g/dl) Heart Rate: 55 (bpm) Pressure Samples Time Site Value (mmHg) Purpose Heart Use Rate(bpm) 14:06 LV 72/9,12 Snapshot 42 Gradients Valve Time Site Site Mean SEP/DFP Peak To Heart Use 1 2 (mmHg) (sec/min) Peak Rate (mmHg) (bpm) Aortic 14:06 LV AO 68 Snapshots Pre Cath Intra NCS Post Cath Vital Signs Time Heart Resp SPO2 etCO2 NIBP (mmHg) Rhythm Pain Sedation Rate (ipm) (%) (mmHg) Status Level (bpm) 13:49:33 52 19 96 36.5 149/81(96) NSR 0 (11) 10(A) , No pain 13:54:18 53 15 96 3.7 143/90(119) NSR 0 (11) 10(A) , No pain 13:58:34 54 14 92 0 144/84(109) NSR 0 (11) 10(A) , No pain 14:03:50 54 19 96 22.3 157/84(127) NSR 0 (11) 10(A) , No pain 14:08:06 67 17 93 0 118/75(92) NSR 0 (11) 9(A) , No pain 14:12:18 63 16 93 0 129/77(105) NSR 0 (11) 9(A) , No pain 14:16:36 54 19 93 0 138/71(115) NSR 0 (11) 10(A) , No pain 14:20:54 52 9 96 17.8 130/79(109) NSR 0 (11) 10(A) , No pain Medications Time Medication Route Dose Verified Delivered Reason Notes Effectiveness by by 13:51:58 0.9% NaCl I.V. 100 Cesar Cesar Per ml/hr Alena Carvajal physician RN RN 13:52:07 Oxygen etCO2 2 l/min Cesar Cesar for low 02 Nasal Lorigan Alena sats cannula RN RN 13:52:22 Heparin Flush added 2 bags Cesar Cesar used for Bag to Alena Carvajal procedure (1000units/500ml field RN RN NS) 13:52:35 Lidocaine 2% added 20ml Cesar Cesar for local to vial Lorigan Lizzieigan anesthetic RN RN 13:52:45 Radial Cocktail added 1 Cesar Cesar used for (Verapamil to syringe Lorigan Lorigan procedure 2mg/Nitro RN RN 400mcg/Heparin 1500units) 13:58:24 Versed I.V. 2 mg Cesar Cesar for sedation Alena Carvajal RN RN 13:58:34 Fentanyl I.V. 100 mcg Cesar Cesar for sedation Alena Carvajal RN RN 14:04:45 Radial Cocktail I.A. 1 Cesar Bill for (Verapamil syringe Alena Au MD vasodilation 2mg/Nitro RN 400mcg/Heparin 1500units) 14:05:13 Versed I.V. 1 mg Cesar Cesar for sedation Alena Carvajal RN development engineer Log Time Note 13:19:39 Diagnostic Cath Status : Elective 13:22:37 Lab Result : eGFR NONAFRICAN 78 ml/min 13:22:37 Lab Result : Hemoglobin 14.7 g/dl 13:22:37 Lab Result : BUN 15 mg/dl 13:22:37 Lab Result : Creatinine 1 mg/dl 13:23:19 Procedure Status Elective Heart Cath (OP). 13:23:24 Cesar Carvajal RN sent for patient. Start room use. 13:23:38 Time tracking: Regular hours (M-F 7:00 - 5:00) 13:23:47 Plan of Care:Hemodynamics will remain stable., Cardiac rhythm will remain stable., Comfort level will be maintained., Respiratory function will remain adequate., Patient/ family verbilizes understanding of procedure., Procedure tolerated without complication., Recovers from procedure without complications.. 13:25:42 H&P Date Dictated: 10/08/2018 Within 30 days and on chart., H&P Addendum completed by physician on day of procedure. (MUST COMPLETE FOR ALL OUTPATIENTS). 13:37:12 Patient received from Pre/Post Procedure Room to CCL 2 Alert and oriented. Tansferred to table in Supine position. 13:37:15 Signed procedure consent form obtained from patient. 13:37:16 Warm blankets applied, and maureen hugger turned on for patient comfort. 13:37:16 Correct patient and procedure confirmed by team. 13:37:17 Pre-procedure instructions explained to patient. 13:37:17 Pre-op teaching completed and patient verbalized understanding. 13:37:18 Family in waiting room. 13:37:20 Patient NPO since Midnight. 13:40:13 ACCPatient has been prescribed/administered the following anti-anginal medication within the last 2 weeks: Beta Belem 13:45:55 ACC Patient presents with Unstable Angina CCS Anginal Class 4--Inability to carry out any physical activity w/o angina. Angina may occur at rest. 13:47:56 ECG and BP/O2 sat monitors applied to patient. 13:48:24 Vital chart was started 13:48:25 Baseline sample Acquired. 13:48:37 Rhythm: sinus rhythm 13:48:39 Full Disclosure recording started 13:49:08 Patient allergic to Other allergyPCN 13:49:09 Is the patient allergic to Iodine/contrast media? No. 13:49:11 Is patient on blood thinner?No 13:49:12 Patient diabetic? Yes. 13:49:16 If diabetic: On Metformin? Yes 13:49:19 If on Metformin: Last Dose? 10/17/2018 13:49:22 Previous problem with sedation/anesthesia? No ? 13:49:24 Snore? Yes 13:49:24 Sleep apnea? No 13:49:25 Deviated septum? No 13:49:26 Opens mouth fully? Yes 13:49:26 Sticks out tongue? Yes 13:49:27 Airway obstruction? No ? 13:49:29 Dentures? No ? 13:49:32 Pre procedure: right dorsailis pedis pulse 2+ Normal; easily identifiable; not easily obliterated 13:49:33 Modified Ced's test Ulnar < 7 seconds 13:49:35 Patient pain scale 0/10 ?. 13:49:39 IV patent on arrival in left forearm with 0.9% NaCl at [facility]. 13:49:40 Lab results completed and on chart. 13:49:42 Right Radial & Right Groin area was prepped with chlora-prep and draped in sterile fashion 13:49:43 Alarms reviewed by R. N. 13:49:44 Sharps counted by scrub and verified by R.N. 13:51:58 0.9% NaCl 100 ml/hr I.V. was administered by Cesar Carvajal RN; Per physician; 13:52:07 Oxygen 2 l/min etCO2 Nasal cannula was administered by Cesar Carvajal RN; for low 02 sats; 13:52:22 Heparin Flush Bag (1000units/500ml NS) 2 bags added to field was administered by Cesar Carvajal RN; used for procedure; 13:52:35 Lidocaine 2% 20ml vial added to field was administered by Cesar Carvajal RN; for local anesthetic; 13:52:45 Radial Cocktail (Verapamil 2mg/Nitro 400mcg/Heparin 1500units) 1 syringe added to field was administered by Cesar Carvajal RN; used for procedure; 13:57:37 Physician arrived 13:57:38 --------ALL STOP TIME OUT------ 13:57:38 Final Timeout: patient, procedure, and site verified with staff and physician. All members of the team are in agreement. 13:57:40 Right Radial & Right Groin site verified by team. 13:57:43 Fire Safety Assessment: A--An alcohol-based skin anteseptic being used preoperatively., C--Open oxygen or nitrous oxide is being used., D--An ESU, laser, or fiber-optic light is being used. 13:57:45 Physical assessment completed. ASA score P 2 - A patient with mild systemic disease as per Bill Au MD. 13:57:51 2) 60-89 Mildly reduced kidney function, and other findings (as for stage 1) point to kidney disease. 13:57:54 Maximum allowable contrast dose (3.7 X eGFR X 0.75)216 ml. 13:57:57 Sedation plan: IV Moderate Sedation Medication:Versed, Fentanyl 13:58:03 Zero performed for pressure channel P1 13:58:24 Versed 2 mg I.V. was administered by Cesar Carvajal RN; for sedation; 13:58:34 Fentanyl 100 mcg I.V. was administered by Cesar Carvajal RN; for sedation; 14:02:38 Use device set Radial Dx or PCI 14:02:39 ACIST Syringe (68581) opened to sterile field. 14:02:39 Medline Cath Pack ([id number]) opened to sterile field. 14:02:40 Bag Decanter (2002S) opened to sterile field. 14:02:40 ACIST Hand Control (95174) opened to sterile field. 14:02:40 ACIST Manifold (91472) opened to sterile field. 14:02:41 Tegaderm 4 x 4 (1626W) opened to sterile field. 14:02:41 MBrace Wrist Support ([id number]) opened to sterile field. 14:02:42 NEEDLE Cook 21G 4cm Radial (L54863) opened to sterile field. 14:02:43 SHEATH 6FR RAIN (5869914) opened to sterile field. 14:02:54 Procedure started. 14:02:58 Local anesthetic to right radial artery with Lidocaine 2% by Bill Au MD.INITIAL ACCESS ONLY 14:03:34 A 6 Fr Short sheath was inserted into the Right Radial artery 14:04:01 A DIAGNOSTIC [place] 110cm 5 Fr catheter (393903) was advanced over the wire and used for Procedure. 14:04:45 Radial Cocktail (Verapamil 2mg/Nitro 400mcg/Heparin 1500units) 1 syringe I.A. was administered by Bill Au MD; for vasodilation; 14:05:13 Versed 1 mg I.V. was administered by Cesar Carvajal RN; for sedation; 14:06:06 LV gram done using PADILLA 14:06:08 Injector settings: Ml/sec: 5, Volume: 15, 14:06:11 LV hemodynamics recorded. 14:06:21 EF : 55 % 14:06:57 LCA angiography performed. 14:09:38 Catheter exchanged over wire. 14:10:22 A DIAGNOSTIC AR MOD 5Fr Catheter ([id number]) was advanced over the wire and used for Procedure. 14:11:18 RCA angiography performed. 14:12:00 Catheter exchanged over wire. 14:12:59 A DIAGNOSTIC AL1 5Fr catheter ([id number]) was advanced over the wire and used for Procedure. 14:13:35 RCA angiography performed. 14:13:48 ACCDominant side:Left 14:15:24 Catheter removed. 14:15:27 ZEPHYR REGULAR TR BAND (895549) opened to sterile field. 14:15:34 Sheath removed intact; hemostasis achieved with Mechanical Compression to the Right Radial artery. 14:15:35 Procedure ended.(Physican Out) 14:16:11 Fluoroscopy time 03.90 minutes. 14:16:19 Fluoroscopy dose: 1029 mGy 14:16:19 Flurop Dose total: 1029 14:16:28 Dose Area Product 75767 mGy/cm. 14:16:32 Contrast amount:Isovue 300 93ml. 14:16:34 Maximum allowable dose exceeded? No. 14:16:35 Sharps counted by scrub and verified by R.N. 14:19:04 [place] band inflated with 12cc of air. 14:19:05 Insertion/operative site no bleeding no hematoma. 14:19:06 Post Procedure Pulses reassessed and unchanged 14:19:09 Post-procedure physical assessment completed. ASA score P 2 - A patient with mild systemic disease as per Bill Au MD. 14:19:11 Post procedure rhythm: unchanged. 14:19:14 Estimated blood loss: 5 ml 14:19:15 Post procedure instruction explained to patient.Patient verbalizes understanding. 14:19:16 Patient needs reinforcement of post procedure teaching. 14:19:21 Procedure type changed to Cath procedure, Diagnostic procedure, LHC, LHC w/Coronaries, Sedation Charges, Moderate Sedation up to 15 minutes 14:23:10 EMERALD Guide Wire (233-436) opened to sterile field. 14:24:00 Vital chart was stopped Device Usage Item Name Manufacture Quantity Catalog Hospital Part Current Minima l Lot# / Number Charge Number Stock [facility]# Code [facility] 84389 100067 070340 811302 20 Syringe Medical (71652) Systems Inc Medline Medline 1 [id number] 720325 22427 984024 5 Cath Pack ([id number]) Bag Microtek 1 2001S 125663 98326 728249 5 Decanter Medical Inc. () ACIST Hand Acist 1 63197 782696 675632 692165 5 Control Medical (64980) Systems Inc ACIST Acist 1 62808 629683 329572 653212 5 Manifold Medical (04609) Systems Inc Tegaderm 4 3M 1 1626W 378212 058055 694788 5 x 4 (1626W) MBrace Advanced 1 140-0250-00 245112 82722 300253 5 Wrist Vascular Support Dynamics ([id number]) NEEDLE Cook Cook Medical 1 [id number] 003927 828914 510464 5 21G 4cm Radial (J12791) SHEATH 6FR Cardinal 1 [id number] 856008 5790077 956758 5 SeeClickFix (0507997) DIAGNOSTIC Terumo 1 40-2150 848920 203298 306115 5 [place] 110cm 5 Fr catheter (681834) DIAGNOSTIC Cardinal 1 [id number] 386520 008711 514505 15 AR MOD 5Fr Health Catheter (775209D) DIAGNOSTIC Cardinal 1 [id number] 529722 278684 901274 15 AL1 5Fr Health catheter (661678Y) ZEPHYR Cardinal 1 425810 570866 9772556 642116 5 REGULAR TR Health BAND (999082) [facility] Cardinal 1 352-447 311534 778360 512595 5 Guide Wire Health (977-298) Signature Audit [place] Stage Time Signature Unsigned Intra-Procedure 10/19/2018 Seferino Lee 2:23:56 PM RT(R) Signatures Performing Physician : Signature : Bill Au MD Date : Time : Nurse : Cesar Caravjal Signature : RN Date : Time : Monitor : Seferino Lee RT Signature : Date : Time : [place] [address] [place] [address]
[2018-10-19 12:20] VITALS: BP 146/80; Ht 193 cm; Wt 103.6 kg
[2018-10-19 12:27] LABS: BASOPHILS 0.2 % (0-2); EOSINOPHILS 5.4 % (0-7); HEMATOCRIT 41.4 % (42.0-54.0); HEMOGLOBIN 14.7 g/dL (13.5-17.5); IMMATURE GRANULOCYTES 0.3 % (0-5); LYMPHOCYTES 30.2 % (15-50); MCH 32.4 pg (26.0-34.0); MCHC 35.5 g/dL (31.0-37.0); MCV 91.2 fL (80.0-100.0); MEAN PLATELET VOLUME 10.8 fL (7.4-10.4); MONOCYTES 9.4 % (2-11); NEUTROPHILS 54.5 % (40-80); PLATELET COUNT 194 10x3/uL (130-400); RBC 4.54 10x6/uL (4.20-6.10); RDW 12.4 % (11.5-14.5)
[2018-10-19 12:40] LABS: ALT (SGPT) 27 U/L (10-68); CALC OSMOLALITY 283 mosm/kg (275-300); CALCIUM 9.2 mg/dL (8.5-10.1); CARBON DIOXIDE 28.1 mmol/L (21.0-32.0); CHLORIDE - SERUM 106 mmol/L (98-107); CHOL - HDL RATIO 2.4 ratio (2.3-4.9); CHOLESTEROL, TOTAL 105 mg/dL (0-200); HDL CHOLESTEROL 44 mg/dL (32-96); LDL CHOLESTEROL 36 mg/dL (0-100); LDL-HDL RATIO 0.8 ratio (1.5-3.5); SODIUM 141 mmol/L (136-145); TRIGLYCERIDE 125 mg/dL (30-200); UREA NITROGEN 15 mg/dL (7-18); eGFR NON AFRICAN AMERICAN 78 mL/min (90-120)
[2018-10-19 12:44] LABS: GLUCOSE 130 mg/dL (74-106); POTASSIUM - SERUM 4.4 mmol/L (3.5-5.1)
--- NOTE | 2018-10-19 14:30 | NUR ---
PT RECEIVED VIA STRETCHER FROM [facility] FOR RECOVERY. PT DROWSY, BUT VERBALLY AROUSABLE. PT DENIES PAIN OR DISCOMFORT. IV PATENT INFUSING VIA ORDERS. HR SINUS MARLEE AT 52, BP 132/73. O2 PLACED AT 2L/NC, SAT 93 ON ROOM AIR, 97 ON O2. Z BAND AND IMMOBILIZER IN PLACE, DRESSING CDI NO BLEEDING OR HEMATOMA NOTED. Z BAND W 18CC PRESSURE. DR ELIAS AT BEDSIDE, DISCUSSING W PT AND REGARDING PROCEDURE RESULTS AND PLAN OF CARE. CALL LIGHT IN REACH.
--- NOTE | 2018-10-19 15:00 | NUR ---
PT SLEEPING COMFORTABLY, HR 52, BP 130/70. Z BAND AND IMMOBILIZER REMAIN IN PLACE, DRESSING CDI NO BLEEDING OR HEMATOMA NOTED. CALL LIGHT IN REACH, AT BEDSIDE.
--- NOTE | 2018-10-19 15:45 | NUR ---
4 CC AIR REMOVED FROM Z BAND, NO BLEEDING OR HEMATOMA NOTED. PT TOLERATING WATER W/O NAUSEA. OFFERED SANDWICH TRAY, DOESN'T WANT THAT GOING TO EAT A GRANOLA BAR INSTEAD. VSS. PT DENIES PAIN OR DISCOMFORT. CALL LIGHT IN REACH
--- NOTE | 2018-10-19 16:05 | NUR ---
DISCHARGE INSTRUCTIONS REVIEWED W PT AND , BOTH VERBALIZED UNDERSTANDING. HEART SURGERY BOOKLET AND APPT W DR SIMS GIVEN. 4 ADD'L CC AIR REMOVED FROM Z BAND, NO BLEEDING OR HEMATOMA NOTED. 1415 IV REMOVED W CATH INTACT, MONITORS REMOVED AND PT UP TO DRESS FOR DISCHARGE.
--- NOTE | 2018-10-19 16:15 | NUR ---
Z BAND AND REMAINING AIR REMOVED, NO BLEEDING OR HEMATOMA NOTED. 2X2 AND TEGADERM DRESSING APPLIED.
--- NOTE | 2018-10-19 16:22 | NUR ---
PT DISCHARGED VIA WC TO PRIVATE VEHICLE TO WAITING. PT HAS ALL BELONGINGS.
== END 2018-10-19 16:20 | disposition home or self-care (01) ==
LOC: D.CATH 11:18
PROVIDERS: ATTEND Internal Medicine Cardiovascular Disease
DX: I25.119 Atherosclerotic heart disease of native coronary artery with unspecified angina pectoris (principal); T82.855A Stenosis of coronary artery stent, initial encounter; Z01.812 Encounter for preprocedural laboratory examination